=== PATIENT | female | born 1960 | race Caucasian/White ===

== ENCOUNTER 2016-06-26 17:03 | Emergency (ER) | payer MEDICARE, OTHER ==
[~2016-06-26] VITALS: Ht 157.5 cm; Wt 60.0 kg
[~2016-06-26 17:03] MED LIST: LOPE2 PO; METO25 PO; POTA-243 PO; RIFA550 PO; ZOCO40TA PO
[2016-06-26 17:06] VITALS: BP 144/83; PULSE 109; RESP 17; TEMP 98.3; O2SAT 96
[2016-06-26] MEDS ORDERED: HYDR-3535 PO (20:48)
[2016-06-26] MEDS ORDERED: POTA10TA8 PO (20:48)
[2016-06-26] MEDS ORDERED: ROBA500T PO (20:48)
[2016-06-26] MEDS ORDERED: SYMB160A INH (20:48)
[2016-06-26] MEDS ORDERED: DIAZ5 PO (20:48)
[2016-06-26] MEDS ORDERED: AMBI10TA PO (20:48)
[2016-06-26] MEDS ORDERED: ZOCO40TA PO (20:48)
[2016-06-26] MEDS ORDERED: ASPIRIN 81 MG CHEW TAB PO ONE (21:00)
[2016-06-26] MEDS ORDERED: SODIUM CHLORIDE 0.9% FLUSH 5 ML FLUSH IVF PRN (21:00)
--- NOTE | 2016-06-26 21:05 | PD ---
HPI Chief Complaint: Chest Pain Time Seen by Provider: 21:00 Travel History International Travel<30 days: No Contact w/Intl Traveler<30days: No Traveled to known affect area: No History of Present Illness HPI 56-year-old female presents to the emergency department for evaluation of left- sided chest pain that radiates to the left arm for 3 days. Patient states the pain is intermittent. She also reports some pain to the right upper leg. Patient with a history of pericardial effusion in July 2011. Patient had a pericardiocentesis. Patient denies any subsequent problems. However, she states this pain is similar to when she had the pericardial effusion. Patient denies any exacerbating factors including movement or coughing or deep breathing. Patient denies any fevers or chills. No cough or congestion. No nausea or vomiting. No abdominal pain. Patient does report history of COPD, chronic back pain, hypertension, hyperlipidemia. She reports being on Lortab, Valium, Ambien, but cannot remember her other medications. Patient reports chronic shortness of breath due to her COPD, but denies any worsening shortness of breath. PFSH Past Medical History Arthritis: Yes Anxiety: Yes Depression: No Cancer: No Cardiovascular Problems: No Congestive Heart Failure: Yes Endocrine: No Genitourinary: No Musculoskeletal: Yes Neurologic: No Psychiatric: Yes Reproductive: No Respiratory: Yes (COPD) PNEUMOCCOCAL Vaccine (Year): 2 : 2 Para: 2 Past Surgical History Section: Yes (X 1) Social History Alcohol Use: No Tobacco Use: Yes (1/2 PPD) Substance Use: No Allergies-Medications (Allergen,Severity, Reaction): Coded Allergies: Cipro (Verified Allergy, Severe, Shortness of Breath, 03/05/16) Penicillin (Verified Allergy, Severe, Rash, 03/04/16) Reported Meds & Prescriptions Reported Meds & Active Scripts Active Reported Zocor (Simvastatin) 40 Mg Tab 40 Mg PO DAILY Potassium Chloride CR (Potassium Chloride) 10 Meq Tab 10 Meq PO DAILY Symbicort Inh (Budesonide/Formoterol Fumarate) 160-4.5 Mcg/Act Aero 1 Puff INH Q12HR Robaxin (Methocarbamol) 500 Mg Tab 500 Mg PO TID Ambien (Zolpidem Tartrate) 10 Mg Tab 10 Mg PO HS PRN Valium (Diazepam) 5 Mg Tab 5 Mg PO QID NEB PRN Lortab (Hydrocodone-Acetaminophen) 10-325 Mg Tab 1 Tab PO Q6H PRN Review of Systems Except as stated in HPI: all other systems reviewed are Neg Physical Exam Narrative GENERAL: Well-developed well-nourished female patient, ambulatory. Afebrile. SKIN: Warm and dry. HEAD: Normocephalic. Atraumatic. EYES: No scleral icterus. No injection or drainage. NECK: Supple, trachea midline. No JVD or lymphadenopathy. CARDIOVASCULAR: Regular rate and rhythm without murmurs, gallops, or rubs. RESPIRATORY: Breath sounds equal bilaterally. No accessory muscle use. Lungs sounds are clear to auscultation. GASTROINTESTINAL: Abdomen soft, non-tender, nondistended. MUSCULOSKELETAL: No cyanosis, or edema. No reproducible chest pain to palpation. BACK: Nontender without obvious deformity. No CVA tenderness. Data Data Last Documented VS Vital Signs Date Time Temp Pulse Resp B/P Pulse Ox O2 Delivery O2 Flow Rate FiO2 06/26/16 21:18 81 18 140/71 99 Room Air 06/26/16 17:06 98.3 Orders Electrocardiogram (06/26/16 ) Basic Metabolic Panel (Bmp) (06/26/16 20:58) Ckmb (Isoenzyme) Profile (06/26/16 20:58) Complete Blood Count With Diff (06/26/16 20:58) Magnesium (Mg) (06/26/16 20:58) Troponin I (06/26/16 20:58) Chest, Single Ap (06/26/16 20:58) Ecg Monitoring (06/26/16 20:58) Bilateral Bp Monitoring (06/26/16 20:58) Iv Access Insert/Monitor (06/26/16 20:58) Oximetry (06/26/16 20:58) Oxygen Administration (06/26/16 20:58) Aspirin Chew (Aspirin Chew) (06/26/16 21:00) Sodium Chloride 0.9% Flush (Ns Flush) (06/26/16 21:00) Labs Laboratory Tests Test 06/26/16 20:40 White Blood Count 8.0 TH/MM3 Red Blood Count 4.06 MIL/MM3 Hemoglobin 12.7 GM/DL Hematocrit 36.9 % Mean Corpuscular Volume 91.1 FL Mean Corpuscular Hemoglobin 31.4 PG Mean Corpuscular Hemoglobin 34.5 % Concent Red Cell Distribution Width 12.9 % Platelet Count 259 TH/MM3 Mean Platelet Volume 10.8 FL Neutrophils (%) (Auto) 55.5 % Lymphocytes (%) (Auto) 32.1 % Monocytes (%) (Auto) 9.0 % Eosinophils (%) (Auto) 3.0 % Basophils (%) (Auto) 0.4 % Neutrophils # (Auto) 4.4 TH/MM3 Lymphocytes # (Auto) 2.6 TH/MM3 Monocytes # (Auto) 0.7 TH/MM3 Eosinophils # (Auto) 0.2 TH/MM3 Basophils # (Auto) 0.0 TH/MM3 CBC Comment DIFF FINAL Differential Comment Sodium Level 140 MEQ/L Potassium Level 3.4 MEQ/L Chloride Level 104 MEQ/L Carbon Dioxide Level 27.1 MEQ/L Anion Gap 9 MEQ/L Blood Urea Nitrogen 11 MG/DL Creatinine 1.00 MG/DL Estimat Glomerular Filtration 57 ML/MIN Rate Random Glucose 94 MG/DL Calcium Level 8.9 MG/DL Magnesium Level 1.8 MG/DL Total Creatine Kinase 85 U/L Troponin I LESS THAN 0.02 NG/ML [facility] Medical Decision Making Medical Screen Exam Complete: Yes Emergency Medical Condition: Yes Medical Record Reviewed: Yes Interpretation(s) chest x-ray - CONCLUSION: 1. No active disease. Moderate dextroscoliosis. Differential Diagnosis ACS versus pericardial effusion versus chest wall pain versus pleurisy versus pneumonia versus COPD Narrative Course 56-year-old female presents to the emergency department for evaluation of intermittent left-sided chest pain that radiates to the left arm for 3 days. Patient reports history of pericardial effusion with similar symptoms. EKG, CBC , BMP, CK, troponin, magnesium are ordered and pending. Chest x-ray is ordered and pending. EKG shows sinus rhythm, heart rate 77, no acute ST changes. CBC is unremarkable. BMP shows no acute abnormality. CK is 85. Troponin is less than 0.02. Magnesium is 1.8. Chest x-ray shows no active disease. Moderate dextroscoliosis. My attending physician, Dr. Draper, will examine patient and disposition patient. Nupur Nicole Jun 26, 2016 21:05
[2016-06-26 21:07] VITALS: RESP 18; O2SAT 98
[2016-06-26 21:17] VITALS: BP_SYST 122; BP_SYST 140; BP_DIAS 70; BP_DIAS 71
[2016-06-26 21:18] VITALS: BP 140/71; PULSE 81; RESP 18; O2SAT 99
[2016-06-26 21:29] LABS: AUTOMATED NEUTROPHIL # 4.4 TH/MM3 (1.8-7.7); BASOPHIL % 0.4 % (0.0-2.0); EOSINOPHIL # 0.2 TH/MM3 (0-0.4); HEMATOCRIT 36.9 % (35.0-46.0); HEMO FLAGS DIFF FINAL; LYMPH % 32.1 % (9.0-44.0); LYMPHOCYTE # 2.6 TH/MM3 (1.0-4.8); MEAN CELL VOLUME 91.1 FL (80.0-100.0); MEAN CORPUSCULAR HEMOGLOBIN 31.4 PG (27.0-34.0); MEAN CORPUSCULAR HGB CONC 34.5 % (32.0-36.0); NEUT % 55.5 % (16.0-70.0); PLATELET COUNT 259 TH/MM3 (150-450); RED BLOOD COUNT 4.06 MIL/MM3 (4.00-5.30); RED CELL DISTRIBUTION WIDTH 12.9 % (11.6-17.2)
[2016-06-26 21:53] LABS: ANION GAP 9 MEQ/L (5-15); BICARBONATE 27.1 MEQ/L (21.0-32.0); BLOOD UREA NITROGEN 11 MG/DL (7-18); CHLORIDE 104 MEQ/L (98-107); GLOMERULAR FILTRATION RATE 57 ML/MIN (>89); MAGNESIUM 1.8 MG/DL (1.5-2.5); POTASSIUM 3.4 MEQ/L (3.5-5.1); SODIUM (NA) 140 MEQ/L (136-145)
[2016-06-26 21:54] LABS: CREATINE KINASE 85 U/L (26-192)
--- NOTE | 2016-06-26 22:03 | RADRPT ---
EXAM DATE/TIME: 06/26/2016 21:11 [facility] COMPARISON: No previous studies available for comparison. INDICATIONS : Chest pain. MEDICAL HISTORY : Chronic obstructive pulmonary disease. SURGICAL HISTORY : None. ENCOUNTER: Initial ACUITY: 3 days PAIN SCORE: 6/10 LOCATION: chest FINDINGS: A single view of the chest demonstrates the lungs to be symmetrically aerated without evidence of mas s, infiltrate or effusion. The cardiomediastinal contours are unremarkable. Osseous structures are intact except dextroscoliosis. CONCLUSION: 1. No active disease. Moderate dextroscoliosis. Jerry Perkins MD on June 26, 2016 at 22:00 Board Certified Radiologist. This report was verified electronically.
--- NOTE | 2016-06-26 23:42 | PD ---
Data Data Last Documented VS Vital Signs Date Time Temp Pulse Resp B/P Pulse Ox O2 Delivery O2 Flow Rate FiO2 06/26/16 21:18 81 18 140/71 99 Room Air 06/26/16 17:06 98.3 Orders Electrocardiogram (06/26/16 ) Basic Metabolic Panel (Bmp) (06/26/16 20:58) Ckmb (Isoenzyme) Profile (06/26/16 20:58) Complete Blood Count With Diff (06/26/16 20:58) Magnesium (Mg) (06/26/16 20:58) Troponin I (06/26/16 20:58) Chest, Single Ap (06/26/16 20:58) Ecg Monitoring (06/26/16 20:58) Bilateral Bp Monitoring (06/26/16 20:58) Iv Access Insert/Monitor (06/26/16 20:58) Oximetry (06/26/16 20:58) Oxygen Administration (06/26/16 20:58) Aspirin Chew (Aspirin Chew) (06/26/16 21:00) Sodium Chloride 0.9% Flush (Ns Flush) (06/26/16 21:00) Ed Poc Ultrasound (06/26/16 ) Labs Laboratory Tests Test 06/26/16 20:40 White Blood Count 8.0 TH/MM3 Red Blood Count 4.06 MIL/MM3 Hemoglobin 12.7 GM/DL Hematocrit 36.9 % Mean Corpuscular Volume 91.1 FL Mean Corpuscular Hemoglobin 31.4 PG Mean Corpuscular Hemoglobin 34.5 % Concent Red Cell Distribution Width 12.9 % Platelet Count 259 TH/MM3 Mean Platelet Volume 10.8 FL Neutrophils (%) (Auto) 55.5 % Lymphocytes (%) (Auto) 32.1 % Monocytes (%) (Auto) 9.0 % Eosinophils (%) (Auto) 3.0 % Basophils (%) (Auto) 0.4 % Neutrophils # (Auto) 4.4 TH/MM3 Lymphocytes # (Auto) 2.6 TH/MM3 Monocytes # (Auto) 0.7 TH/MM3 Eosinophils # (Auto) 0.2 TH/MM3 Basophils # (Auto) 0.0 TH/MM3 CBC Comment DIFF FINAL Differential Comment Sodium Level 140 MEQ/L Potassium Level 3.4 MEQ/L Chloride Level 104 MEQ/L Carbon Dioxide Level 27.1 MEQ/L Anion Gap 9 MEQ/L Blood Urea Nitrogen 11 MG/DL Creatinine 1.00 MG/DL Estimat Glomerular Filtration 57 ML/MIN Rate Random Glucose 94 MG/DL Calcium Level 8.9 MG/DL Magnesium Level 1.8 MG/DL Total Creatine Kinase 85 U/L Troponin I LESS THAN 0.02 NG/ML [facility] Supervised Visit with BENNETT: Yes Narrative Course The history, exam, and medical decision-making in the associated midlevel provider note were completed with my assistance. I reviewed and agree with the findings presented. I attest that I had a [id number] encounter with the patient on the same day, and personally performed and documented my assessment and findings in the medical record. *My assessment and Findings: This is a 56-year-old female with history of pericardial effusion and strep. Viridans endocarditis who presents to the emergency department with pain in her neck, back, chest and legs. She says this feels similar to when she had a pericardial effusion. She also has a long history of chronic pain. She does follow with Dr. Juarez due to her history of endocarditis. She denies any weakness, constitutional symptoms or fever or chills. Labs were obtained which were reassuring. She is afebrile. I did a bedside ultrasound which demonstrates a trace to mild pericardial effusion. 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 I don't think this requires urgent intervention. I think it is reasonable to obtain cultures on the patient that I don't think she needs to be admitted. I'll follow-up on the cultures and call her if they're abnormal and I told her to return to the emergency department if she develops fevers, chills or other symptoms. Diagnosis Primary Impression: Pain Patient Instructions: General Instructions Additional Instruction: If you develop severe chest pain, shortness of breath, sweating, lightheadedness , dizziness or difficulty breathing return to the emergency department immediately. Return to the emergency department if you develop fevers or chills. Follow-up with Dr. Juarez for a formal echo. Med/Other Pt SpecificInfo: No Change to Meds Disposition: 01 DISCHARGE HOME Condition: Stable Ellen Draper MD Jun 26, 2016 23:42
--- NOTE | 2016-06-27 13:16 | EKG ---
Date Performed: 06/26/2016 Time Performed: 17:48:26 PTAGE: 56 years EKG: Sinus rhythm NORMAL ECG Compared to prior tracing no significant change PREVIOUS TRACING : 03/04/2016 22.20 DOCTOR: Albert Santos Interpretating Date/Time 06/27/2016 13:14:15
== END 2016-06-27 00:49 | disposition home or self-care (01) ==
LOC: NEPC 17:03
DX: R07.89 Other chest pain (principal); M79.602 Pain in left arm; M79.651 Pain in right thigh; M54.2 Cervicalgia; M54.9 Dorsalgia, unspecified; I10 Essential (primary) hypertension; E78.5 Hyperlipidemia, unspecified; F17.200 Nicotine dependence, unspecified, uncomplicated; Z86.79 Personal history of other diseases of the circulatory system; Z87.09 Personal history of other diseases of the respiratory system; Z87.39 Personal history of other diseases of the musculoskeletal system and connective tissue; Z86.59 Personal history of other mental and behavioral disorders
CPT/HCPCS: 71010; 80048; 82550; 83735; 84484; 85025; 87040; 93005